=== PATIENT | female | born 1980 | race Caucasian/White ===

== ENCOUNTER 2016-08-29 21:10 | Emergency (ER) | payer OTHER ==
[2016-08-29 21:17] VITALS: BP 142/88
[2016-08-29] MEDS ORDERED: Albuterol/Ipratropium NEB.SOL* Albuterol 2.5 MG/Ipratropium 0.5 MG 3 ML INH ONE (22:14)
--- NOTE | 2016-08-29 22:20 | ED ---
HPI Cardiac - HPI Summary HPI Summary: Pt here w/ URI sx x > 1 week. Started as sneezing and nasal congestion w/ mild ST. Progressed to cough which she's had for 7 days now as well as fever, chills. Was productive w/ green phlegm for about 3 days but the stopped. Chest is burning, coughing very easily w/ talking or taking deep breath. Was coughing so hard earlier she caused herself to gag and vomit. Decreased appetite - denies N/V/D otherwise. No rash. Tried homepathic remedies w/o relief - also tried sudafed and cold/sinus medication w/o relief. 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 Imms are UTD. Partner is concerned about pneumonia - pt denies h/o of this, bronchitis, asthma. - History of Current Complaint Chief Complaint: EDShortnessOfBreath Stated Complaint: UPPER RESPIRATORY COMPLAINT/COUGH Time Seen by Provider: 08/29/16 21:52 Hx Obtained From: Patient, Family/Retail Service Lead Merchandiser - male partner Pain Intensity: 8 - Allergy/Home Medications Allergies/Adverse Reactions: Allergies Allergy/AdvReac Type Severity Reaction Status Date / Time Penicillins Allergy Intermediate Hives Verified 08/31/13 19:53 Codeine AdvReac Intermediate Hallucinati Verified 08/31/13 19:53 ons Sulfa Antibiotics AdvReac Intermediate Shortness Verified 08/31/13 19:53 of Breath CODEINE Allergy Hallucinati Uncoded 04/29/16 08:17 ons PMH/Surg Hx/FS Hx/Imm Hx Previously Healthy: Yes Endocrine/Hematology History: Denies: Hx Anticoagulant Therapy, Hx Blood Disorders, Hx Unexplained Bleeding Respiratory History: Denies: Hx Asthma, Hx Chronic Bronchitis, Hx Chronic Obstructive Pulmonary Disease (COPD), Hx Pneumonia, Hx Pulmonary Embolism Infectious Disease History: No Infectious Disease History: Denies: Hx of Known/Suspected MRSA, Traveled Outside the [place] in Last 30 Days - Family History Known Family History: Positive: None - Social History Occupation: Employed Full-time - massage therapist Lives: With Family Alcohol Use: Occasionally Hx Substance Use: No Substance Use Type: Reports: None Hx Tobacco Use: No Smoking Status (MU): Never Smoked Tobacco Review of Systems Positive: Fever, Chills Positive: Erythema. Negative: Drainage Positive: Nasal Discharge. Negative: Sore Throat, Ear Ache Negative: Chest Pain Respiratory: Other - see HPI Positive: Shortness Of Breath, Cough Gastrointestinal: Other - see HPI Negative: Abdominal Pain, Vomiting, Diarrhea, Nausea Positive: no symptoms reported Musculoskeletal: Negative Skin: Negative Neurological: Negative Psychological: Normal - concerned All Other Systems Reviewed And Are Negative: Yes Physical Exam Triage Information Reviewed: Yes Vital Signs On Initial Exam: Initial Vitals Temp Pulse Resp BP Pulse Ox 98.8 F 107 20 142/88 100 08/29/16 21:13 08/29/16 21:13 08/29/16 21:13 08/29/16 21:13 08/29/16 21:13 Vital Signs Reviewed: Yes Appearance: Positive: No Pain Distress, Well-Nourished, Ill-Appearing - face flushed, coughing frequently, eyes tearing from coughing, nasal congestion w/ erythematous nose, appears fatigued Skin: Positive: Warm - moist Head/Face: Positive: Normal Head/Face Inspection - sinuses NTTP Eyes: Positive: EOMI, Conjunctiva Clear, Other: - sclera injected B/L ENT: Positive: Hearing grossly normal, Pharynx normal, TMs normal - mild pink color - no hyperemia, no air bubbles, no d/c, NTTP Neck: Positive: Supple, Nontender Respiratory/Lung Sounds: Positive: Clear to Auscultation, Breath Sounds Present. Negative: Rales, Rhonchi, Wheezes Cardiovascular: Positive: Pulses are Symmetrical in both Upper and Lower Extremities, Tachycardia, S1, S2. Negative: Murmur, Rub Abdomen Description: Positive: Nontender, Soft Bowel Sounds: Positive: Present Musculoskeletal: Positive: Normal, Strength/ROM Intact Neurological: Positive: Normal, Sensory/Motor Intact, Alert, Oriented to Person Place, Time, CN Intact II-III Psychiatric: Positive: Normal Diagnostics - Vital Signs Vital Signs Temp Pulse Resp BP Pulse Ox 08/29/16 21:13 98.8 F 107 20 142/88 100 - Laboratory Lab Statement: Any lab studies that have been ordered have been reviewed, and results considered in the medical decision making process. Re-Evaluation - Re-Evaluation First Eval Change: Improved - breathing easier s/p duoneb - chest still CTA B/L Disposition - Course Course Of Treatment: Pt's sx appear to be viral in nature w/ persisting cough. She could have influenza but is outside the window of tx w/ tamiflu so swab was not taken. Vitals are stable and she has improved breathing sx s/p duoneb. She is advised to rest, stay hydrated and implement supportive care suggestions. Reviewed danger s/sx of when to return to ED - pt and partner voice understanding. - Diagnoses Provider Diagnoses: Bronchitis Discharge - Discharge Plan Condition: Stable Disposition: HOME Prescriptions: Albuterol HFA INHALER* [Ventolin HFA Inhaler*] 2 puff INH Q6H PRN #1 mdi PRN Reason: Cough Benzonatate CAP* [Tessalon 100 MG CAP*] 100 mg PO TID PRN #15 cap PRN Reason: Cough Patient Education Materials: Acute Bronchitis (ED) Forms: *Work Release Referrals: Shadi Pride MD [Primary Care Provider] - Additional Instructions: You appear to have bronchitis. Since your symptoms have lasted greater than 1 week with a persistent cough, you are being prescribed tessalon perles and an albuterol inhaler as this helped some tonight. You may try the following supportive care therapies as well: Rest Saline nasal wash for nasal congestion and post nasal drip to reduce cough Salt water throat gargles 2 x day with 8 ounces of warm water + 1/4 teaspoon of salt to help with post nasal drip Drink 70+ ounces of water daily Sleep 8+ hours per night Avoid Dairy and sugar Hot herbal/decaf tea with lemon & honey Cough drops Chicken broth (preferably organic, free range chicken) Humidifier in house, but especially near bed at night Try a facial steam with or without eucalyptus essential oil - Vicks vapor rub Consider taking Vitamin D3 5,000iu and Vitamin C 1,000mg every day during illness *If you develop difficulty breathing, fever uncontrolled with ibuprofen/ acetaminophen, vomiting, diarrhea, rash, return to ED
--- NOTE | 2016-08-29 23:00 | RAD ---
HISTORY: Cough, shortness of breath, fever COMPARISONS: September 07, 2010 VIEWS: 2: Frontal dual-energy and lateral views of the chest. FINDINGS: CARDIOMEDIASTINAL SILHOUETTE: The cardiomediastinal silhouette is normal. JOSE: The jose are normal. PLEURA: The costophrenic angles are sharp. No pleural abnormalities are noted. LUNG PARENCHYMA: The lungs are clear. ABDOMEN: The upper abdomen is clear. There is no subphrenic gas. BONES AND SOFT TISSUES: No bone or soft tissue abnormalities are noted. OTHER: None. IMPRESSION: NO ACTIVE CARDIOPULMONARY DISEASE.
[2016-08-29] MEDS ORDERED: Ibuprofen TAB* 600 MG ONE (23:09)
[2016-08-29] MEDS ORDERED: Ibuprofen TAB* 600 MG PO ONE (23:10)
[2016-08-29] MEDS ORDERED: Albuterol HFA INHALER* 8 gm MDI INH ONE (23:10)
[2016-08-29] MEDS ORDERED: Benzonatate CAP* 100 MG PO ONE (23:10)
== END 2016-08-29 23:33 | disposition home or self-care (01) ==
LOC: ED 21:10
DX: J20.9 Acute bronchitis, unspecified (principal); R06.02 Shortness of breath; R05 Cough
CPT/HCPCS: 71020; 99282; A9270-GY

== ENCOUNTER 2016-09-19 13:41 | Emergency (ER) | payer OTHER ==
[2016-09-19 13:51] VITALS: BP 144/91
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
== END 2016-09-19 14:34 | disposition home or self-care (01) ==
LOC: UCEAST 13:41
DX: H10.33 Unspecified acute conjunctivitis, bilateral (principal); Z88.5 Allergy status to narcotic agent; Z88.0 Allergy status to penicillin; Z88.2 Allergy status to sulfonamides
CPT/HCPCS: 99212; G0463

== ENCOUNTER → 2017-11-28 18:02 | Emergency (ER) | payer OTHER ==
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
[2017-11-28 20:36] VITALS: BP 146/98
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
== END | disposition home or self-care (01) ==
LOC: ED 18:02
DX: S16.1XXA Strain of muscle, fascia and tendon at neck level, initial encounter (principal); M54.2 Cervicalgia; Z88.0 Allergy status to penicillin; R51 Headache; V49.49XA Driver injured in collision with other motor vehicles in traffic accident, initial encounter; Y92.410 Unspecified street and highway as the place of occurrence of the external cause
CPT/HCPCS: 70450; 72125; 99282